=== PATIENT | male | born 2000 | race Caucasian/White ===

== ENCOUNTER 2021-06-28 17:22 | Emergency (ER) | payer OTHER ==
[~2021-06-28] VITALS: Ht 188 cm; Wt 88.6 kg
[2021-06-28] MEDS ORDERED: INDERAL 10MG10 MG PO (17:41)
[2021-06-28 18:05] LABS: MEAN CELL VOLUME 88 fl (80.0-100.0); MEAN CORPUSCULAR HEMOGLOBIN 30 pg (27-31); MEAN CORPUSCULAR HGB CONC 34 g/dl (33.0-37.0); MEAN PLATELET VOLUME 9.3 fl (7.4-10.4); PLATELET COUNT 222 K/mm3 (130-400); RED BLOOD COUNT 5.32 M/mm3 (4.20-5.60)
[2021-06-28 18:18] LABS: C-REACTIVE PROTEIN 7.46 mg/dL (0.00-0.50); CALCIUM 9.5 mg/dL (8.4-10.2); CREATININE, serum 1.28 mg/dL (0.72-1.25); POTASSIUM 4.4 mmol/L (3.5-4.5)
[2021-06-28] MEDS ORDERED: CLEOCIN HC150 MG/CAP PO (19:18)
[2021-06-28] MEDS ORDERED: NAPROSYN500 MG PO (19:18)
[2021-06-28] MEDS ORDERED: PERCOCET 325 MG1 TA2 PO (19:18)
[2021-06-28 19:22] LABS: STREP SCREEN NEGATIVE
[2021-06-28 19:44] LABS: BAND 5 % (0-10); LYMPHOCYTE 14 % (20.0-51.0); METAMYELOCYTE 1 % (0-0); MYELOCYTE 2 % (0-0); NEUTROPHILS 73 % (42.0-75.2)
[2021-06-28 19:45] LABS: PLATELET ESTIMATE NORMAL (NORMAL)
[2021-06-28 19:48] VITALS: BP 142/74; PULSE 95; TEMP 99.6
[2021-06-30 08:01] LABS: PATHOLOGY DIFF REVIEW OK +
== END 2021-06-28 19:53 | disposition home or self-care (01) ==
LOC: COL.ER 17:22
PROVIDERS: Emergency Medicine
DX: J36 Peritonsillar abscess (principal); R65.10 Systemic inflammatory response syndrome (SIRS) of non-infectious origin without acute organ dysfunction; Z88.6 Allergy status to analgesic agent; Z20.822 Contact with and (suspected) exposure to COVID-19
CPT/HCPCS: J1100; J1885; J7030; Q9967